=== PATIENT | female | born 1960 | race Caucasian/White ===

== ENCOUNTER → 2018-02-04 | Outpatient (CLI) | payer OTHER ==
--- NOTE | 2018-02-04 17:02 | Diagnostic Imaging Report ---
TECHNIQUE: Magnetic resonance imaging of the RIGHT HIP was performed WITHOUT injected contrast. HISTORY: Right hip pain COMPARISON: None available. FINDINGS: Bone: No acute fracture. Bone marrow edema within the femoral head and the acetabulum. Femoroacetabular Joint: Acetabular labrum: Diffuse degenerative labral tearing. Articular Cartilage: Diffuse full-thickness cartilage loss with subchondral edema and cystic change. Muscle and tendons: Iliopsoas tendon intact. Hamstring origins intact. Gluteal tendons intact. Soft tissues: Otherwise unremarkable. 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 Signed by: Dr. Vitaliy Yeager M.D. on 02/04/2018 4:59 PM
== END ==
LOC: MRI 15:35
PROVIDERS: ATTEND Family Medicine
DX: M87.051 Idiopathic aseptic necrosis of right femur (principal); M16.11 Unilateral primary osteoarthritis, right hip

== ENCOUNTER → 2018-11-05 | Outpatient (CLI) | payer OTHER ==
--- NOTE | 2018-11-05 09:25 | Diagnostic Imaging Report ---
TECHNIQUE: Magnetic resonance imaging of the RIGHT ANKLE was performed WITHOUT injected contrast. COMPARISON: None available. HISTORY: Pain at the lateral aspect of the ankle FINDINGS: LIGAMENTS: Medial Complex: Deltoid intact. Lateral Complex: Tibiofibular ligaments intact. Attenuation of the anterior talofibular and calcaneofibular ligament. TENDONS: Medial: Intact Lateral: Intact Anterior: Intact Achilles: Intact BONES: Nondisplaced transverse fracture of the distal fibula above the plafond. JOINTS: Cartilage: No focal defect is identified involving the tibiotalar joint. Other: Fluid within the joints is within physiologic limits. SOFT TISSUES: Soft tissue edema around the fracture site. IMPRESSION: Transverse stress fracture of the distal fibula above the plafond. Patient notified directly of the finding at the time of this dictation and instructed to follow-up with Dr. Rivera.. Signed by: Dr. Vitaliy Yeager M.D. on 11/05/2018 9:22 AM
== END ==
LOC: MRI 07:39
PROVIDERS: ATTEND Family Medicine
DX: M19.071 Primary osteoarthritis, right ankle and foot (principal)